=== PATIENT | male | born 1970 | race Caucasian/White ===

== ENCOUNTER → 2024-10-12 11:20 | Outpatient (REF) | payer OTHER, SELFPAY | LOC: RAD 11:20 | PROVIDERS: ATTENDING PHYSICIAN Nurse Practitioner Family | DX: M54.12 Radiculopathy, cervical region (principal) | CPT/HCPCS: 72050 ==

== ENCOUNTER → 2025-01-15 10:52 | Outpatient (REF) | payer OTHER, SELFPAY | LOC: PAVMRI 10:52 | PROVIDERS: ATTENDING PHYSICIAN Physician Assistant; FAMILY PHYSICIAN Nurse Practitioner Family | DX: M54.12 Radiculopathy, cervical region (principal); M54.14 Radiculopathy, thoracic region | CPT/HCPCS: 72141; 72146 ==

== ENCOUNTER → 2025-04-08 11:35 | Outpatient (REF) | payer OTHER, SELFPAY | LOC: EMG 11:35 | PROVIDERS: ATTENDING PHYSICIAN Physical Medicine & Rehabilitation; FAMILY PHYSICIAN Internal Medicine | DX: M54.12 Radiculopathy, cervical region (principal); M48.02 Spinal stenosis, cervical region; R20.0 Anesthesia of skin | CPT/HCPCS: 95886; 95909 ==

== ENCOUNTER → 2025-05-21 13:50 | Outpatient (REF) | payer OTHER, SELFPAY | LOC: HWRAD 13:50 | PROVIDERS: ATTENDING PHYSICIAN Internal Medicine | DX: M47.22 Other spondylosis with radiculopathy, cervical region (principal) | CPT/HCPCS: 72125 ==

== ENCOUNTER → 2025-05-26 15:24 | Outpatient (REF) | payer OTHER, SELFPAY | LOC: REG 15:24 | PROVIDERS: ATTENDING PHYSICIAN Neurological Surgery | DX: M47.22 Other spondylosis with radiculopathy, cervical region (principal) | CPT/HCPCS: 72050 ==